=== PATIENT | male | born 1935 | race Caucasian/White ===

== ENCOUNTER 2021-06-22 10:29 | Inpatient (IN) | payer OTHER ==
[2021-06-22 13:42] LABS: BASO % 0.3 % (0-2.0); HEMATOCRIT 42.9 % (35.4-49); HEMOGLOBIN 14.3 GM/dL (11.7-16.9); LYMPH % 12.3 % (8-40); MCH 28.5 pg (25.7-33.7); MCHC 33.3 g/dl (32.0-35.9); MEAN CELL VOLUME 85.5 fl (80-96); MEAN PLT VOLUME 8.8 fl (7.5-11.1); MONO % 9.3 % (3.8-10.2); NEUT % 77.1 % (42.8-82.8); PLATELET COUNT 157 10^3/uL (134-434); RBC 5.01 M/mm3 (4.00-5.60); RDW 14.6 % (11.9-15.9); WHITE BLOOD COUNT 10.1 K/mm3 (4.0-10.0)
[2021-06-22 13:48] LABS: INR 1.24 (0.83-1.09); PROTHROMBIN TIME (PATIENT) 14.5 SEC (9.7-13.0)
[2021-06-22 13:51] LABS: ACTIVATED PTT 28.2 SECONDS (25.2-36.5)
[2021-06-22 14:10] LABS: CHLORIDE 108 mmol/L (98-107); SODIUM 141 mmol/L (136-145)
[2021-06-22 14:12] LABS: CALCIUM 8.7 mg/dL (8.5-10.1)
[2021-06-22 14:13] LABS: ALBUMIN 2.3 g/dl (3.4-5.0); ANION GAP 11 MMOL/L (8-16); BLOOD UREA NITROGEN 42.8 mg/dL (7-18); CO2 23 mmol/L (21-32); GLUCOSE,RANDOM 117 mg/dL (74-106); LIPASE 76 U/L (73-393)
[2021-06-22 14:16] LABS: CREATININE 1.8 mg/dL (0.55-1.3); PHOSPHOROUS 3.8 mg/dL (2.5-4.9); SGOT/AST 52 U/L (15-37); SGPT/ALT 58 U/L (13-61)
[2021-06-22 14:17] LABS: BILIRUBIN,TOTAL 1.2 mg/dL (0.2-1); TOT PROT 6.5 g/dl (6.4-8.2)
[2021-06-22 14:18] LABS: ALK PHOS 353 U/L (45-117)
[2021-06-22 14:21] LABS: N-TERMINAL BNP 2541.9 pg/ml (5-450)
[2021-06-22 14:29] LABS: MAGNESIUM 2.2 mg/dL (1.8-2.4)
[2021-06-22 19:11] LABS: BF WBC & OTHER NUCLEATED CELLS 468 /mm3
[2021-06-22 19:23] LABS: BODY FLUID MACROPHAGES 18 %; BODY FLUID MESOTHELIAL 2 %; BODY FLUID MONOCYTE 11 %
[2021-06-23 01:21] VITALS: BMI 28.2
[2021-06-23] MEDS: INSULIN SLIDING SCALE (NOVOLOG) 1 VIAL SQ SCH ×4 (06:11→21:52)
[2021-06-23 08:36] LABS: BASO % 1.3 % (0-2.0); EOS % 1.8 % (0-4.5); HEMOGLOBIN 13.5 GM/dL (11.7-16.9); LYMPH % 12.8 % (8-40); MCH 28.4 pg (25.7-33.7); MCHC 33.9 g/dl (32.0-35.9); MEAN CELL VOLUME 83.9 fl (80-96); MEAN PLT VOLUME 8.4 fl (7.5-11.1); NEUT % 76.1 % (42.8-82.8); PLATELET COUNT 146 10^3/uL (134-434); RBC 4.77 M/mm3 (4.00-5.60); RDW 14.2 % (11.9-15.9); WHITE BLOOD COUNT 8.8 K/mm3 (4.0-10.0)
[2021-06-23 09:08] LABS: ALBUMIN 2.3 g/dl (3.4-5.0); BLOOD UREA NITROGEN 38.9 mg/dL (7-18); CALCIUM 8.6 mg/dL (8.5-10.1)
[2021-06-23 09:11] LABS: CREATININE 1.6 mg/dL (0.55-1.3); PHOSPHOROUS 3.6 mg/dL (2.5-4.9)
[2021-06-23 09:13] LABS: BILIRUBIN,TOTAL 1.3 mg/dL (0.2-1); MAGNESIUM 2.2 mg/dL (1.8-2.4)
[2021-06-23] MEDS ORDERED: CEFTRIAXONE 1 GM in DEXTROSE 5%-WATER 50 ML IVPB SCH (10:00)
[2021-06-23] MEDS: LOSARTAN POTASSIUM 50 MG TABLET PO SCH (11:05)
[2021-06-23] MEDS: MIRTAZAPINE 15 MG TABLET (FP) PO SCH (11:05)
[2021-06-23] MEDS ORDERED: PT OWN MED DRAWER 7, Y5N ONE (11:27)
[2021-06-23] MEDS ORDERED: DEXTROSE 5%-WATER - 50 ML IVPB ONE (11:37)
[2021-06-23] MEDS ORDERED: cefTRIAXone SODIUM 1 GM VIAL ONE (11:37)
[2021-06-23 12:39] LABS: ALBUMIN 2.2 g/dl (3.4-5.0)
[2021-06-23 12:42] LABS: BILIRUBIN,DIRECT 0.7 mg/dL (0.0-0.2)
[2021-06-23 12:44] LABS: BILIRUBIN,TOTAL 1.8 mg/dL (0.2-1); TOT PROT 5.9 g/dl (6.4-8.2)
[2021-06-23] MEDS: RIVAROXABAN 15 MG TABLET PO SCH (17:42)
[2021-06-23 21:09] LABS: EPI CELLS >36 /uL (0-25.1); HYALINE CASTS 24 /uL (0-3.1); URINE APPEARANCE CLOUDY; URINE BACTERIA 71 /uL (0-1359); URINE BILIRUBIN NEGATIVE (NEGATIVE); URINE COLOR DK YELLOW; URINE GLUCOSE (UA) NEGATIVE (NEGATIVE); URINE KETONE NEGATIVE (NEGATIVE); URINE LEUK ESTERASE NEGATIVE (NEGATIVE); URINE NITRITE NEGATIVE (NEGATIVE); URINE PROTEIN 1+ (NEGATIVE)
[2021-06-23] MEDS: ROSUVASTATIN CA 10 MG TABLET (FP) PO SCH (21:52)
[2021-06-24 00:05] LABS: URINE RBC 79 /uL (0-23.9)
[2021-06-24 00:06] LABS: URINE WBC 70 /uL (0-25.8)
[2021-06-24 00:09] LABS: YEAST NEGATIVE (NEGATIVE)
[2021-06-24] MEDS: INSULIN SLIDING SCALE (NOVOLOG) 1 VIAL SQ SCH ×4 (06:13→23:21)
[2021-06-24 08:14] LABS: BASO % 1.6 % (0-2.0); HEMATOCRIT 38.7 % (35.4-49); HEMOGLOBIN 13.3 GM/dL (11.7-16.9); LYMPH % 15.7 % (8-40); MCH 28.7 pg (25.7-33.7); MCHC 34.4 g/dl (32.0-35.9); MEAN CELL VOLUME 83.3 fl (80-96); MEAN PLT VOLUME 8.8 fl (7.5-11.1); MONO % 9.5 % (3.8-10.2); NEUT % 71.2 % (42.8-82.8); PLATELET COUNT 148 10^3/uL (134-434); RBC 4.64 M/mm3 (4.00-5.60); RDW 14.1 % (11.9-15.9); WHITE BLOOD COUNT 8.6 K/mm3 (4.0-10.0)
[2021-06-24 08:36] LABS: CALCIUM 8.1 mg/dL (8.5-10.1)
[2021-06-24 08:38] LABS: ALBUMIN 2.1 g/dl (3.4-5.0); BLOOD UREA NITROGEN 36.9 mg/dL (7-18)
[2021-06-24 08:41] LABS: CREATININE 1.6 mg/dL (0.55-1.3)
[2021-06-24 08:42] LABS: BILIRUBIN,TOTAL 1.4 mg/dL (0.2-1); TOT PROT 5.8 g/dl (6.4-8.2)
[2021-06-24] MEDS ORDERED: DEXTROSE 5%-WATER - 50 ML IVPB ONE (10:53)
[2021-06-24] MEDS ORDERED: cefTRIAXone SODIUM 1 GM VIAL ONE (10:53)
[2021-06-24] MEDS: LOSARTAN POTASSIUM 50 MG TABLET PO SCH ×2 (10:58→12:44)
[2021-06-24] MEDS: CEFTRIAXONE 1 GM in DEXTROSE 5%-WATER - 50 ML IVPB SCH (10:59)
[2021-06-24] MEDS: MIRTAZAPINE 15 MG TABLET (FP) PO SCH (10:59)
[2021-06-24 17:07] LABS: BODY FLUID ALBUMIN 1.8 g/dL (Not Estab.)
[2021-06-24] MEDS: RIVAROXABAN 15 MG TABLET PO SCH (17:27)
[2021-06-24] MEDS ORDERED: MELATONIN 5 MG TABLETS PO ONE (20:35)
[2021-06-24] MEDS: ROSUVASTATIN CA 10 MG TABLET (FP) PO SCH (21:28)
[2021-06-25] MEDS: INSULIN SLIDING SCALE (NOVOLOG) 1 VIAL SQ SCH ×4 (06:35→22:29)
[2021-06-25 08:13] LABS: HEMOGLOBIN 12.8 GM/dL (11.7-16.9); MCH 28.7 pg (25.7-33.7); MCHC 33.7 g/dl (32.0-35.9); MEAN CELL VOLUME 85.1 fl (80-96); MEAN PLT VOLUME 8.9 fl (7.5-11.1); PLATELET COUNT 132 10^3/uL (134-434); RBC 4.47 M/mm3 (4.00-5.60); RDW 14.6 % (11.9-15.9); WHITE BLOOD COUNT 8.3 K/mm3 (4.0-10.0)
[2021-06-25 08:19] LABS: CALCIUM 8.2 mg/dL (8.5-10.1)
[2021-06-25 08:20] LABS: BLOOD UREA NITROGEN 38.5 mg/dL (7-18)
[2021-06-25 08:23] LABS: BILIRUBIN,TOTAL 0.9 mg/dL (0.2-1); CREATININE 1.6 mg/dL (0.55-1.3)
[2021-06-25 08:25] LABS: TOT PROT 5.6 g/dl (6.4-8.2)
[2021-06-25] MEDS ORDERED: cefTRIAXone SODIUM 1 GM VIAL ONE (11:03)
[2021-06-25] MEDS ORDERED: DEXTROSE 5%-WATER - 50 ML IVPB ONE (11:03)
[2021-06-25] MEDS: CEFTRIAXONE 1 GM in DEXTROSE 5%-WATER - 50 ML IVPB SCH (11:13)
[2021-06-25] MEDS: MIRTAZAPINE 15 MG TABLET (FP) PO SCH (11:51)
[2021-06-25] MEDS ORDERED: ACETAMINOPHEN 325 MG TABLET (FP) PO ONE (18:10)
[2021-06-25] MEDS ORDERED: HALOPERIDOL LACTATE 5 MG/ML IM ONE (19:22)
[2021-06-25] MEDS: ROSUVASTATIN CA 10 MG TABLET (FP) PO SCH (22:29)
[2021-06-26] MEDS: INSULIN SLIDING SCALE (NOVOLOG) 1 VIAL SQ SCH ×3 (06:35→18:33)
[2021-06-26] MEDS ORDERED: cefTRIAXone SODIUM 1 GM VIAL ONE (09:24)
[2021-06-26] MEDS ORDERED: DEXTROSE 5%-WATER - 50 ML IVPB ONE (09:24)
[2021-06-26] MEDS: MIRTAZAPINE 15 MG TABLET (FP) PO SCH (09:25)
[2021-06-26] MEDS: CEFTRIAXONE 1 GM in DEXTROSE 5%-WATER - 50 ML IVPB SCH (09:25)
[2021-06-27] MEDS: ROSUVASTATIN CA 10 MG TABLET (FP) PO SCH ×2 (00:30→22:03)
[2021-06-27] MEDS: INSULIN SLIDING SCALE (NOVOLOG) 1 VIAL SQ SCH ×5 (00:30→21:58)
[2021-06-27] MEDS ORDERED: cefTRIAXone SODIUM 1 GM VIAL ONE (08:53)
[2021-06-27] MEDS ORDERED: DEXTROSE 5%-WATER - 50 ML IVPB ONE (08:53)
[2021-06-27] MEDS: MIRTAZAPINE 15 MG TABLET (FP) PO SCH (09:25)
[2021-06-27] MEDS: CEFTRIAXONE 1 GM in DEXTROSE 5%-WATER - 50 ML IVPB SCH (09:25)
[2021-06-27 10:38] LABS: CALCIUM 8.8 mg/dL (8.5-10.1)
[2021-06-27 10:39] LABS: BLOOD UREA NITROGEN 38.2 mg/dL (7-18)
[2021-06-27 10:42] LABS: CREATININE 1.6 mg/dL (0.55-1.3)
[2021-06-27] MEDS: DEXTROSE 5%-0.45% SALINE 1,000 ML IV SCH (12:42)
[2021-06-27] MEDS ORDERED: ACETAMINOPHEN 1000 MG/100 ML VIAL IVPB ONE (20:20)
[2021-06-28] MEDS: INSULIN SLIDING SCALE (NOVOLOG) 1 VIAL SQ SCH (06:30)
[2021-06-28] MEDS ORDERED: DEXTROSE 5%-WATER - 50 ML IVPB ONE (09:38)
[2021-06-28] MEDS ORDERED: cefTRIAXone SODIUM 1 GM VIAL ONE (09:38)
[2021-06-28] MEDS: CEFTRIAXONE 1 GM in DEXTROSE 5%-WATER - 50 ML IVPB SCH (09:54)
[2021-06-28] MEDS: morphine SULFATE 4 MG/ML VIAL IVPUSH PRN (09:55)
[2021-06-28] MEDS: MIRTAZAPINE 15 MG TABLET (FP) PO SCH (12:56)
[2021-06-28] MEDS: DEXTROSE 5%-0.45% SALINE 1,000 ML IV SCH (15:05)
[2021-06-28] MEDS: ROSUVASTATIN CA 10 MG TABLET (FP) PO SCH (21:20)
[2021-06-29] MEDS ORDERED: cefTRIAXone SODIUM 1 GM VIAL ONE (10:27)
[2021-06-29] MEDS ORDERED: DEXTROSE 5%-WATER - 50 ML IVPB ONE (10:27)
[2021-06-29] MEDS: MIRTAZAPINE 15 MG TABLET (FP) PO SCH (10:50)
[2021-06-29] MEDS: CEFTRIAXONE 1 GM in DEXTROSE 5%-WATER - 50 ML IVPB SCH (10:56)
[2021-06-29] MEDS: morphine SULFATE 4 MG/ML VIAL IVPUSH PRN (14:36)
[2021-06-29] MEDS: ROSUVASTATIN CA 10 MG TABLET (FP) PO SCH ×2 (22:04→22:08)
[2021-06-30] MEDS: DEXTROSE 5%-0.45% SALINE 1,000 ML IV SCH ×2 (01:21→18:15)
[2021-06-30] MEDS: morphine SULFATE 4 MG/ML VIAL IVPUSH PRN (08:41)
[2021-06-30] MEDS ORDERED: cefTRIAXone SODIUM 1 GM VIAL ONE (10:02)
[2021-06-30] MEDS ORDERED: DEXTROSE 5%-WATER - 50 ML IVPB ONE (10:03)
[2021-06-30] MEDS: MIRTAZAPINE 15 MG TABLET (FP) PO SCH (10:15)
[2021-06-30] MEDS: CEFTRIAXONE 1 GM in DEXTROSE 5%-WATER - 50 ML IVPB SCH (10:16)
[2021-06-30] MEDS: MIDODRINE HCL 5 MG TABLET PO SCH ×2 (18:15→22:09)
[2021-06-30] MEDS: ALBUMIN HUMAN 25% 12.5 GM/50 ML VIAL IVPB SCH ×6 (18:46→20:14)
[2021-06-30] MEDS: ROSUVASTATIN CA 10 MG TABLET (FP) PO SCH (22:10)
[2021-07-01] MEDS ORDERED: morphine SULFATE 4 MG/ML VIAL IVPUSH PRN (08:30)
[2021-07-01] MEDS: MIDODRINE HCL 5 MG TABLET PO SCH ×2 (10:30→21:52)
[2021-07-01] MEDS: DEXTROSE 5%-0.45% SALINE 1,000 ML IV SCH ×2 (10:30→21:51)
[2021-07-01 15:33] VITALS: BP 132/75; PULSE 99; TEMP 98.4
[2021-07-01] MEDS: ROSUVASTATIN CA 10 MG TABLET (FP) PO SCH (21:52)
[2021-07-02] MEDS: ACETAMINOPHEN 325 MG TABLET (FP) PO ONE ×2 (06:28→08:38)
[2021-07-02] MEDS ORDERED: traMADol HCL 50 MG TABLET PO ONE (09:00)
[2021-07-02] MEDS: MIDODRINE HCL 5 MG TABLET PO SCH (09:01)
== END 2021-07-02 09:50 | disposition home health service (06) | DRG 374 ==
LOC: JER 10:29 → JERBED 13:13 → J5S 06-23 00:02
PROVIDERS: ADMIT Internal Medicine
PROC: 0W9G3ZZ Drainage of Peritoneal Cavity, Percutaneous Approach (ICD-10-PCS; 2021-06-22)
PROC: 0W9G30Z Drainage of Peritoneal Cavity with Drainage Device, Percutaneous Approach (ICD-10-PCS; principal; 2021-06-29)
DX: C18.9 Malignant neoplasm of colon, unspecified (principal); E43 Unspecified severe protein-calorie malnutrition; C79.9 Secondary malignant neoplasm of unspecified site; C22.0 Liver cell carcinoma; R17 Unspecified jaundice; E78.5 Hyperlipidemia, unspecified; E11.9 Type 2 diabetes mellitus without complications; I25.10 Atherosclerotic heart disease of native coronary artery without angina pectoris; G30.9 Alzheimer's disease, unspecified; F02.80 Dementia in other diseases classified elsewhere, unspecified severity, without behavioral disturbance, psychotic disturbance, mood disturbance, and anxiety; R79.89 Other specified abnormal findings of blood chemistry; I48.91 Unspecified atrial fibrillation; I25.2 Old myocardial infarction; Z22.7 Latent tuberculosis; F32.A Depression, unspecified; R62.7 Adult failure to thrive; I12.9 Hypertensive chronic kidney disease with stage 1 through stage 4 chronic kidney disease, or unspecified chronic kidney disease; E11.22 Type 2 diabetes mellitus with diabetic chronic kidney disease; N18.9 Chronic kidney disease, unspecified; Z95.5 Presence of coronary angioplasty implant and graft
CPT/HCPCS: 36415; 49418; 71045-TC-FY; 74176-TC; 76700-TC; 80048; 80053; 80076; 81003; 82042; 82105; 82140; 82378; 82728; 82945; 82962; 83516; 83540; 83550; 83615; 83690; 83735; 83880; 84100; 84157; 84484; 85025; 85027; 85610; 85730; 86038; 86140; 86301; 86480; 86704; 86803; 87070; 87075; 87205; 87340; 87517; 97116-GP; 97161-GP; 99285-25; C9803; J0131; P9047; U0003; U0005